=== PATIENT | male | born 1945 | race Caucasian/White ===

== ENCOUNTER → 2016-11-13 | Outpatient (CLI) | payer OTHER ==
--- NOTE | 2016-11-13 09:21 | CPEKG ---
Heart Rate: 67 RR Interval: 896 P-R Interval: 160 QRSD Interval: 90 QT Interval: 392 QTC Interval: 414 P [place]: 73 QRS [place]: -32 T Wave [place]: 75 EKG Severity - OTHERWISE NORMAL ECG - EKG Impression: SINUS RHYTHM EKG Impression: ATRIAL PREMATURE COMPLEX EKG Impression: LEFT AXIS DEVIATION Electronically Signed By: Nikhil Smiley 13-Nov-2016 09:25:52
== END ==
LOC: FCP 09:11
PROVIDERS: ATTEND Orthopaedic Surgery
DX: Z01.810 Encounter for preprocedural cardiovascular examination (principal)